=== PATIENT | male | born 1960 | race Caucasian/White ===

== ENCOUNTER 2017-09-27 15:17 | Inpatient (IN) | payer OTHER ==
[2017-09-27] MEDS: morphine 4 MG/ML VIAL IV (16:13)
[2017-09-27] MEDS: SOD CHLORIDE 0.9% 1,000 ML IV ×4 (16:13→22:01)
[2017-09-27] MEDS: ONDANSETRON 4 MG INJ IV (16:13)
[2017-09-27 16:19] LABS: ADD MAN DIFF? NO
[2017-09-27 16:24] LABS: ABNORMAL IP MESSAGE 1; BASOPHILS % 0.1 % (0.0-2.0); HEMATOCRIT 37.6 % (42.0-52.0); HEMOGLOBIN 12.8 g/dl (14.0-18.0); LYMPHOCYTES # 0.1 10^3/ul (0.8-2.9); MEAN CORPUSCULAR HEMOGLOBIN 29.7 pg (29.0-33.0); MEAN CORPUSCULAR VOLUME 87.2 fl (82.0-101.0); MEAN PLATELET VOLUME 9.2 fl (7.4-10.4); MONOCYTE # 0.8 10^3/ul (0.3-0.9); MONOCYTES % 5.9 % (0.0-11.0); NEUTROPHIL # 12.6 10^3/ul (1.6-7.5); NEUTROPHILS % 89.8 % (39.0-77.0); PLATELET COUNT 165 10^3/UL (140-415); POSITIVE DIFF @See below; RED BLOOD COUNT 4.31 10^6/ul (4.70-6.10); RED CELL DISTRIBUTION WIDTH 13.3 % (11.5-14.5)
[2017-09-27 16:42] LABS: ALANINE AMINOTRANSFERASE 453 IU/L (13-69); ALBUMIN 3.2 g/dl (3.3-4.9); ALBUMIN/GLOBULIN RATIO 0.91; ALKALINE PHOSPHATASE 753 IU/L (42-121); ANION GAP 20 (8-16); ASPARTATE AMINO TRANSFERASE 661 IU/L (15-46); BILIRUBIN,INDIRECT 0.5 mg/dl (0-1.1); BILIRUBIN,TOTAL 2.1 mg/dl (0.2-1.3); BLOOD UREA NITROGEN 70 mg/dl (7-20); CALCIUM 9.7 mg/dl (8.4-10.2); CARBON DIOXIDE 23 mmol/L (21-31); CHLORIDE 97 mmol/L (97-110); CREATININE 3.14 mg/dl (0.61-1.24); GLUCOSE 154 mg/dl (70-220); LIPASE 89 U/L (23-300); POTASSIUM 4.7 mmol/L (3.5-5.1); SODIUM 135 mmol/L (135-144); TOTAL PROTEIN 6.7 g/dl (6.1-8.1)
[2017-09-27 17:24] LABS: INR 1.22; PROTIME 15.6 Sec (11.9-14.9); PT RATIO 1.2
[2017-09-27 17:25] LABS: PARTIAL THROMBOPLASTIN TIME 34.2 Sec (25.0-35.0)
[2017-09-27 17:30] LABS: B-TYPE NATRIURETIC PEPTIDE 6650 PG/ML (0-125)
[2017-09-27 17:30] LABS: TROPONIN-I 0.044 ng/ml (0.00-0.12)
[2017-09-27 17:39] LABS: LACTIC ACID 1.7 mmol/L (0.5-2.0)
[2017-09-27 18:45] LABS: LACTIC ACID 1.5 mmol/L (0.5-2.0)
[2017-09-27 19:10] LABS: ADD UMIC YES; UR AMORPHOUS CRYSTAL FEW /HPF (NONE SEEN); UR ASCORBIC ACID 20 mg/dL (NEGATIVE); UR BILIRUBIN (Dip) NEGATIVE (NEGATIVE); UR BLOOD (Dip) 2+ mg/dL (NEGATIVE); UR CLARITY CLOUDY (CLEAR); UR COLOR AMBER (YELLOW); UR GLUCOSE (Dip) NEGATIVE (NEGATIVE); UR KETONES (Dip) NEGATIVE (NEGATIVE); UR LEUKOCYTE ESTERASE (Dip) TRACE Leu/ul (NEGATIVE); UR NITRITE (Dip) NEGATIVE (NEGATIVE); UR RBC 22 /HPF (0-5); UR SPECIFIC GRAVITY (Dip) 1.015 (1.003-1.030); UR SQUAMOUS EPITHELIAL CELL FEW /HPF (FEW); UR TOTAL PROTEIN (Dip) 1+ mg/dl (NEGATIVE); UR UROBILINOGEN (Dip) 1+ mg/dL (NEGATIVE); UR WBC 7 /HPF (0-5)
[2017-09-27] MEDS: PIPER-TAZO 3.375 GM IV (PMX) 100 ML IVPB (19:41)
[2017-09-27] MEDS: VANCOMYCIN 1 GM (PMX) 250 ML IVPB (20:14)
[2017-09-27] MEDS: NORepinephrine 8MG/250 ML (PMX 250 ML IV (20:40)
[2017-09-27] MEDS ORDERED: ONDANSETRON 4 MG INJ IV (21:30)
[2017-09-27] MEDS ORDERED: morphine 2 MG INJ IV (21:30)
[2017-09-27 21:31] LABS: HAAIG REFLEX REFLEX FILED
[2017-09-27] MEDS: SOD CHLORIDE 0.9% 500 ML IV (21:35)
[2017-09-27 21:58] LABS: LACTIC ACID 2.4 mmol/L (0.5-2.0)
[2017-09-27 22:06] LABS: GAMMA GLUTAMYL TRANSPEPTIDASE 400 IU/L (0-50)
[2017-09-27 22:26] LABS: HEPATITIS B SURFACE ANTIGEN NEGATIVE (NEGATIVE)
[2017-09-27 22:44] LABS: HEPATITIS B CORE ANTIBODY NEGATIVE (NEGATIVE); HEPATITIS C VIRAL ANTIBODY NEGATIVE (NEGATIVE)
[2017-09-28] MEDS: PIPER-TAZO 2.25 GM (PMX) 50 ML IVPB ×5 (00:04→23:52)
[2017-09-28] MEDS ORDERED: VANCOMYCIN IV PER PHARMACY XX (04:30)
[2017-09-28] MEDS: SOD CHLORIDE 0.9% 1,000 ML IV ×3 (04:30→23:52)
[2017-09-28] MEDS: PANTOPRAZOLE 40 MG INJ IV (06:17)
[2017-09-28 07:15] LABS: ADD MAN DIFF? NO
[2017-09-28 07:18] LABS: WHITE BLOOD COUNT 12.5 10^3/ul (4.8-10.8)
[2017-09-28 07:18] LABS: ABNORMAL IP MESSAGE 1; BASOPHILS % 0.3 % (0.0-2.0); EOSINOPHILS % 0.2 % (0.0-7.0); HEMATOCRIT 36.3 % (42.0-52.0); HEMOGLOBIN 12.4 g/dl (14.0-18.0); LYMPHOCYTES # 0.3 10^3/ul (0.8-2.9); LYMPHOCYTES % 2.6 % (15.0-51.0); MEAN CORPUSCULAR HGB CONC 34.2 g/dl (32.0-37.0); MEAN CORPUSCULAR VOLUME 87.9 fl (82.0-101.0); MEAN PLATELET VOLUME 9.2 fl (7.4-10.4); MONOCYTE # 1.3 10^3/ul (0.3-0.9); MONOCYTES % 10.2 % (0.0-11.0); NEUTROPHIL # 10.7 10^3/ul (1.6-7.5); NEUTROPHILS % 85.5 % (39.0-77.0); PLATELET COUNT 136 10^3/UL (140-415); POSITIVE DIFF @See below; RED BLOOD COUNT 4.13 10^6/ul (4.70-6.10); RED CELL DISTRIBUTION WIDTH 13.6 % (11.5-14.5)
[2017-09-28 07:39] LABS: LACTIC ACID 1.8 mmol/L (0.5-2.0)
[2017-09-28 07:40] LABS: ALANINE AMINOTRANSFERASE 384 IU/L (13-69); ALBUMIN 2.5 g/dl (3.3-4.9); ALBUMIN/GLOBULIN RATIO 0.78; ALKALINE PHOSPHATASE 594 IU/L (42-121); ANION GAP 20 (8-16); ASPARTATE AMINO TRANSFERASE 359 IU/L (15-46); BILIRUBIN,INDIRECT 0.4 mg/dl (0-1.1); BILIRUBIN,TOTAL 2.3 mg/dl (0.2-1.3); BLOOD UREA NITROGEN 68 mg/dl (7-20); CARBON DIOXIDE 21 mmol/L (21-31); CHLORIDE 102 mmol/L (97-110); CREATININE 2.88 mg/dl (0.61-1.24); GLUCOSE 127 mg/dl (70-220); MAGNESIUM 2.4 mg/dl (1.7-2.5); PHOSPHORUS 3.3 mg/dl (2.5-4.9); POTASSIUM 4.8 mmol/L (3.5-5.1); SODIUM 138 mmol/L (135-144); TOTAL PROTEIN 5.7 g/dl (6.1-8.1)
[2017-09-28 07:53] LABS: HEMOGLOBIN A1C 5.5 % (0-5.9)
[2017-09-28 08:27] LABS: THYROID STIMULATING HORMONE 0.574 MIU/L (0.465-4.680)
[2017-09-28] MEDS: VANCOMYCIN 1.25 GM in SOD CHLORIDE 0.9% 250 ML IVPB (10:51)
[2017-09-28 11:56] LABS: HAAIG REFLEX REFLEX FILED
[2017-09-28 12:24] LABS: LACTIC ACID 1.2 mmol/L (0.5-2.0)
[2017-09-28 12:39] LABS: TOTAL IRON BINDING CAPACITY 161 ug/dl (241-421)
[2017-09-28 12:40] LABS: % IRON SATURATION 10 % SAT (22-52); IRON 16 ug/dl (35-150)
[2017-09-28 12:53] LABS: HEPATITIS B SURFACE ANTIGEN NEGATIVE (NEGATIVE)
[2017-09-28 13:11] LABS: HEPATITIS B CORE ANTIBODY NEGATIVE (NEGATIVE); HEPATITIS C VIRAL ANTIBODY NEGATIVE (NEGATIVE)
[2017-09-28 14:01] LABS: B-TYPE NATRIURETIC PEPTIDE 11000 PG/ML (0-125)
[2017-09-28 18:18] LABS: TROPONIN-I 0.029 ng/ml (0.00-0.12)
[2017-09-29 01:06] LABS: TROPONIN-I 0.033 ng/ml (0.00-0.12)
[2017-09-29 06:03] LABS: ADD MAN DIFF? NO
[2017-09-29 06:10] LABS: WHITE BLOOD COUNT 12.6 10^3/ul (4.8-10.8)
[2017-09-29 06:10] LABS: ABNORMAL IP MESSAGE 1; BASOPHILS % 0.2 % (0.0-2.0); EOSINOPHILS # 0.1 10^3/ul (0.0-0.5); HEMOGLOBIN 12.2 g/dl (14.0-18.0); LYMPHOCYTES # 0.4 10^3/ul (0.8-2.9); LYMPHOCYTES % 3.3 % (15.0-51.0); MEAN CORPUSCULAR HEMOGLOBIN 29.8 pg (29.0-33.0); MEAN CORPUSCULAR HGB CONC 33.9 g/dl (32.0-37.0); MEAN CORPUSCULAR VOLUME 87.8 fl (82.0-101.0); MEAN PLATELET VOLUME 9.7 fl (7.4-10.4); MONOCYTE # 0.9 10^3/ul (0.3-0.9); MONOCYTES % 7.1 % (0.0-11.0); NEUTROPHIL # 10.9 10^3/ul (1.6-7.5); NEUTROPHILS % 87.2 % (39.0-77.0); PLATELET COUNT 173 10^3/UL (140-415); POSITIVE DIFF @See below; RED CELL DISTRIBUTION WIDTH 13.7 % (11.5-14.5)
[2017-09-29] MEDS: PIPER-TAZO 2.25 GM (PMX) 50 ML IVPB ×3 (06:26→17:37)
[2017-09-29 06:31] LABS: ALANINE AMINOTRANSFERASE 241 IU/L (13-69); ALBUMIN 2.3 g/dl (3.3-4.9); ALBUMIN/GLOBULIN RATIO 0.74; ALKALINE PHOSPHATASE 548 IU/L (42-121); ANION GAP 18 (8-16); ASPARTATE AMINO TRANSFERASE 148 IU/L (15-46); BILIRUBIN,INDIRECT 0.4 mg/dl (0-1.1); BILIRUBIN,TOTAL 2.2 mg/dl (0.2-1.3); BLOOD UREA NITROGEN 70 mg/dl (7-20); CALCIUM 8.7 mg/dl (8.4-10.2); CARBON DIOXIDE 21 mmol/L (21-31); CHLORIDE 105 mmol/L (97-110); CREATININE 2.88 mg/dl (0.61-1.24); GLUCOSE 106 mg/dl (70-220); MAGNESIUM 2.5 mg/dl (1.7-2.5); PHOSPHORUS 2.3 mg/dl (2.5-4.9); POTASSIUM 4.3 mmol/L (3.5-5.1); SODIUM 140 mmol/L (135-144); TOTAL PROTEIN 5.4 g/dl (6.1-8.1)
[2017-09-29 06:39] LABS: TROPONIN-I 0.033 ng/ml (0.00-0.12)
[2017-09-29 06:48] LABS: CHOLESTEROL 78 mg/dl (100-200)
[2017-09-29 06:48] LABS: CHOL/HDL RATIO 6.5 RATIO; HDL CHOLESTEROL 12 mg/dl (30-78); LDL CHOLESTEROL,CALCULATED 39 mg/dl; TRIGLYCERIDES 137 mg/dl (0-149)
[2017-09-29 11:28] LABS: ADD UMIC YES; UR AMORPHOUS CRYSTAL FEW /HPF (NONE SEEN); UR ASCORBIC ACID NEGATIVE (NEGATIVE); UR BACTERIA FEW /HPF (NONE SEEN); UR BILIRUBIN (Dip) NEGATIVE (NEGATIVE); UR BLOOD (Dip) 2+ mg/dL (NEGATIVE); UR CLARITY SLIGHTLY CLOUDY (CLEAR); UR COLOR YELLOW (YELLOW); UR GLUCOSE (Dip) NEGATIVE (NEGATIVE); UR KETONES (Dip) NEGATIVE (NEGATIVE); UR LEUKOCYTE ESTERASE (Dip) NEGATIVE Leu/ul (NEGATIVE); UR NITRITE (Dip) NEGATIVE (NEGATIVE); UR RBC 11 /HPF (0-5); UR SPECIFIC GRAVITY (Dip) 1.013 (1.003-1.030); UR SQUAMOUS EPITHELIAL CELL FEW /HPF (FEW); UR TOTAL PROTEIN (Dip) 1+ mg/dl (NEGATIVE); UR UROBILINOGEN (Dip) NEGATIVE (NEGATIVE); UR WBC 4 /HPF (0-5)
[2017-09-29 12:01] LABS: CREATININE,URINE RANDOM 58.14 mg/dl (20-370); PROTEIN/CREAT RATIO 0.87 RATIO
[2017-09-29] MEDS: SOD CHLORIDE 0.9% 250 ML IV (14:00)
[2017-09-29] MEDS: SOD CHLORIDE 0.9% 500 ML IV (17:20)
[2017-09-29] MEDS: SOD CHLORIDE 0.9% 1,000 ML IV (17:34)
[2017-09-29] MEDS ORDERED: VANCOMYCIN IV PER PHARMACY XX (19:00)
[2017-09-29] MEDS: VANCOMYCIN 1.25 GM in SOD CHLORIDE 0.9% 250 ML IVPB (21:15)
[2017-09-30] MEDS: PIPER-TAZO 2.25 GM (PMX) 50 ML IVPB ×5 (01:28→23:26)
[2017-09-30] MEDS: SOD CHLORIDE 0.9% 1,000 ML IV ×4 (07:06→23:26)
[2017-09-30 07:42] LABS: ADD MAN DIFF? NO
[2017-09-30 07:46] LABS: BASOPHIL # 0.1 10^3/ul (0.0-0.1); BASOPHILS % 0.2 % (0.0-2.0); EOSINOPHILS # 0.1 10^3/ul (0.0-0.5); EOSINOPHILS % 0.5 % (0.0-7.0); HEMATOCRIT 30.2 % (42.0-52.0); HEMOGLOBIN 10.3 g/dl (14.0-18.0); LYMPHOCYTES # 0.7 10^3/ul (0.8-2.9); LYMPHOCYTES % 3.6 % (15.0-51.0); MEAN CORPUSCULAR HEMOGLOBIN 29.5 pg (29.0-33.0); MEAN CORPUSCULAR HGB CONC 34.1 g/dl (32.0-37.0); MEAN CORPUSCULAR VOLUME 86.5 fl (82.0-101.0); MEAN PLATELET VOLUME 9.7 fl (7.4-10.4); MONOCYTE # 1.3 10^3/ul (0.3-0.9); MONOCYTES % 6.4 % (0.0-11.0); NEUTROPHIL # 18.3 10^3/ul (1.6-7.5); NEUTROPHILS % 87.7 % (39.0-77.0); PLATELET COUNT 159 10^3/UL (140-415); RED BLOOD COUNT 3.49 10^6/ul (4.70-6.10); RED CELL DISTRIBUTION WIDTH 14.3 % (11.5-14.5)
[2017-09-30 07:46] LABS: WHITE BLOOD COUNT 20.8 10^3/ul (4.8-10.8)
[2017-09-30 08:06] LABS: ALANINE AMINOTRANSFERASE 150 IU/L (13-69); ALBUMIN 2.3 g/dl (3.3-4.9); ALBUMIN/GLOBULIN RATIO 0.74; ALKALINE PHOSPHATASE 491 IU/L (42-121); ANION GAP 17 (8-16); ASPARTATE AMINO TRANSFERASE 95 IU/L (15-46); BILIRUBIN,INDIRECT 0.4 mg/dl (0-1.1); BILIRUBIN,TOTAL 2.3 mg/dl (0.2-1.3); BLOOD UREA NITROGEN 73 mg/dl (7-20); CALCIUM 8.4 mg/dl (8.4-10.2); CARBON DIOXIDE 18 mmol/L (21-31); CHLORIDE 110 mmol/L (97-110); CREATININE 3.16 mg/dl (0.61-1.24); GLUCOSE 106 mg/dl (70-220); MAGNESIUM 2.5 mg/dl (1.7-2.5); PHOSPHORUS 2.5 mg/dl (2.5-4.9); POTASSIUM 3.6 mmol/L (3.5-5.1); SODIUM 141 mmol/L (135-144); TOTAL PROTEIN 5.4 g/dl (6.1-8.1)
[2017-09-30 15:07] LABS: CREATININE, RANDOM URINE 71 mg/dL (20-370); MICROALBUMIN 1.8 mg/dL; MICROALBUMIN/CREATININE RATIO 25 (<30)
[2017-09-30] MEDS: MUPIROCIN 2% 22 GM OINT TOP ×2 (18:06→23:26)
[2017-09-30] MEDS ORDERED: MUPIROCIN 2% 22 GM OINT TOP (21:00)
[2017-10-01] MEDS: DIPHENHYDRAMINE 25 MG CAP PO (00:24)
[2017-10-01] MEDS: METHYLPREDNISOLONE 125 MG INJ IV (00:24)
[2017-10-01] MEDS: PIPER-TAZO 2.25 GM (PMX) 50 ML IVPB ×4 (05:58→23:53)
[2017-10-01] MEDS: CLOPIDOGREL 75 MG TAB PO (08:06)
[2017-10-01] MEDS: MUPIROCIN 2% 22 GM OINT TOP ×2 (08:06→21:06)
[2017-10-01] MEDS: PANTOPRAZOLE (EC) 40 MG TAB PO (08:06)
[2017-10-01] MEDS: SOD CHLORIDE 0.9% 1,000 ML IV ×3 (08:09→19:38)
[2017-10-01 08:52] LABS: ADD MAN DIFF? NO
[2017-10-01 09:01] LABS: WHITE BLOOD COUNT 15.3 10^3/ul (4.8-10.8)
[2017-10-01 09:01] LABS: ABNORMAL IP MESSAGE 1; BASOPHILS % 0.2 % (0.0-2.0); EOSINOPHILS % 0.1 % (0.0-7.0); HEMOGLOBIN 10.9 g/dl (14.0-18.0); LYMPHOCYTES # 0.6 10^3/ul (0.8-2.9); LYMPHOCYTES % 3.8 % (15.0-51.0); MEAN CORPUSCULAR HEMOGLOBIN 29.2 pg (29.0-33.0); MEAN CORPUSCULAR HGB CONC 34.1 g/dl (32.0-37.0); MEAN CORPUSCULAR VOLUME 85.8 fl (82.0-101.0); MEAN PLATELET VOLUME 9.6 fl (7.4-10.4); MONOCYTE # 0.3 10^3/ul (0.3-0.9); MONOCYTES % 1.6 % (0.0-11.0); NEUTROPHILS % 91.4 % (39.0-77.0); PLATELET COUNT 162 10^3/UL (140-415); POSITIVE DIFF @See below; RED BLOOD COUNT 3.73 10^6/ul (4.70-6.10); RED CELL DISTRIBUTION WIDTH 14.5 % (11.5-14.5)
[2017-10-01 09:59] LABS: ALANINE AMINOTRANSFERASE 112 IU/L (13-69); ALBUMIN 2.2 g/dl (3.3-4.9); ALBUMIN/GLOBULIN RATIO 0.66; ALKALINE PHOSPHATASE 485 IU/L (42-121); ANION GAP 17 (8-16); ASPARTATE AMINO TRANSFERASE 76 IU/L (15-46); BILIRUBIN,INDIRECT 0.3 mg/dl (0-1.1); BILIRUBIN,TOTAL 1.1 mg/dl (0.2-1.3); BLOOD UREA NITROGEN 70 mg/dl (7-20); CALCIUM 8.1 mg/dl (8.4-10.2); CARBON DIOXIDE 17 mmol/L (21-31); CHLORIDE 113 mmol/L (97-110); CREATININE 2.84 mg/dl (0.61-1.24); GLUCOSE 157 mg/dl (70-220); MAGNESIUM 2.6 mg/dl (1.7-2.5); POTASSIUM 4.1 mmol/L (3.5-5.1); SODIUM 143 mmol/L (135-144); TOTAL PROTEIN 5.5 g/dl (6.1-8.1)
[2017-10-01] MEDS: SOD FERRIC GLUC COMPLX 125 MG in SOD CHLORIDE 0.9% 100 ML IVPB (17:55)
[2017-10-02] MEDS: PIPER-TAZO 2.25 GM (PMX) 50 ML IVPB ×2 (05:46→11:50)
[2017-10-02 07:27] LABS: ADD MAN DIFF? NO
[2017-10-02 07:35] LABS: ABNORMAL IP MESSAGE 1; BASOPHIL # 0.1 10^3/ul (0.0-0.1); BASOPHILS % 0.3 % (0.0-2.0); HEMATOCRIT 31.1 % (42.0-52.0); HEMOGLOBIN 10.6 g/dl (14.0-18.0); LYMPHOCYTES % 4.8 % (15.0-51.0); MEAN CORPUSCULAR HGB CONC 34.1 g/dl (32.0-37.0); MEAN CORPUSCULAR VOLUME 85.2 fl (82.0-101.0); MONOCYTES % 4.8 % (0.0-11.0); NEUTROPHIL # 16.6 10^3/ul (1.6-7.5); NEUTROPHILS % 81.1 % (39.0-77.0); PLATELET COUNT 175 10^3/UL (140-415); POSITIVE DIFF @See below; RED BLOOD COUNT 3.65 10^6/ul (4.70-6.10); RED CELL DISTRIBUTION WIDTH 14.4 % (11.5-14.5)
[2017-10-02 07:35] LABS: WHITE BLOOD COUNT 20.5 10^3/ul (4.8-10.8)
[2017-10-02] MEDS: PANTOPRAZOLE (EC) 40 MG TAB PO (07:39)
[2017-10-02 08:04] LABS: ALANINE AMINOTRANSFERASE 88 IU/L (13-69); ALBUMIN 2.3 g/dl (3.3-4.9); ALBUMIN/GLOBULIN RATIO 0.74; ALKALINE PHOSPHATASE 401 IU/L (42-121); ANION GAP 18 (8-16); ASPARTATE AMINO TRANSFERASE 42 IU/L (15-46); BILIRUBIN,INDIRECT 0.3 mg/dl (0-1.1); BILIRUBIN,TOTAL 0.3 mg/dl (0.2-1.3); BLOOD UREA NITROGEN 69 mg/dl (7-20); CALCIUM 8.1 mg/dl (8.4-10.2); CARBON DIOXIDE 16 mmol/L (21-31); CHLORIDE 115 mmol/L (97-110); CREATININE 2.72 mg/dl (0.61-1.24); GLUCOSE 161 mg/dl (70-220); MAGNESIUM 2.5 mg/dl (1.7-2.5); PHOSPHORUS 2.4 mg/dl (2.5-4.9); POTASSIUM 3.6 mmol/L (3.5-5.1); SODIUM 145 mmol/L (135-144); TOTAL PROTEIN 5.4 g/dl (6.1-8.1)
[2017-10-02] MEDS: CLOPIDOGREL 75 MG TAB PO (08:23)
[2017-10-02] MEDS: MUPIROCIN 2% 22 GM OINT TOP ×2 (08:24→21:12)
[2017-10-02] MEDS: SOD CHLORIDE 0.9% 1,000 ML IV (08:24)
[2017-10-02] MEDS: SOD CHLORIDE 0.45% 1,000 ML IV (10:34)
[2017-10-02] MEDS ORDERED: VANCOMYCIN IV PER PHARMACY XX (11:00)
[2017-10-02] MEDS ORDERED: VANCOMYCIN 1.5 GM in SOD CHLORIDE 0.9% 250 ML IVPB (12:30)
[2017-10-02] MEDS: LORATADINE 10 MG TAB PO (12:50)
[2017-10-02] MEDS: MEROPENEM 500MG/50 ML (PMX) 50 ML IVPB ×2 (12:50→21:12)
[2017-10-02] MEDS: SOD FERRIC GLUC COMPLX 125 MG in SOD CHLORIDE 0.9% 100 ML IVPB (17:40)
[2017-10-02] MEDS: LINEZOLID 600 MG/D5W (PMX) 300 ML IVPB (21:51)
[2017-10-03] MEDS: SOD CHLORIDE 0.45% 1,000 ML IV (06:00)
[2017-10-03] MEDS: PANTOPRAZOLE (EC) 40 MG TAB PO (06:55)
[2017-10-03 07:55] LABS: ADD MAN DIFF? NO
[2017-10-03 07:57] LABS: ABNORMAL IP MESSAGE 1; BASOPHIL # 0.1 10^3/ul (0.0-0.1); BASOPHILS % 0.7 % (0.0-2.0); EOSINOPHILS # 0.1 10^3/ul (0.0-0.5); EOSINOPHILS % 0.7 % (0.0-7.0); HEMATOCRIT 35.4 % (42.0-52.0); HEMOGLOBIN 12.3 g/dl (14.0-18.0); LYMPHOCYTES # 1.2 10^3/ul (0.8-2.9); LYMPHOCYTES % 8.9 % (15.0-51.0); MEAN CORPUSCULAR HEMOGLOBIN 29.5 pg (29.0-33.0); MEAN CORPUSCULAR HGB CONC 34.7 g/dl (32.0-37.0); MEAN CORPUSCULAR VOLUME 84.9 fl (82.0-101.0); MEAN PLATELET VOLUME 9.4 fl (7.4-10.4); MONOCYTES % 7.1 % (0.0-11.0); NEUTROPHIL # 9.5 10^3/ul (1.6-7.5); NEUTROPHILS % 70.1 % (39.0-77.0); PLATELET COUNT 190 10^3/UL (140-415); POSITIVE DIFF @See below; RED BLOOD COUNT 4.17 10^6/ul (4.70-6.10); RED CELL DISTRIBUTION WIDTH 14.6 % (11.5-14.5)
[2017-10-03 07:57] LABS: WHITE BLOOD COUNT 13.6 10^3/ul (4.8-10.8)
[2017-10-03 08:23] LABS: ALANINE AMINOTRANSFERASE 80 IU/L (13-69); ALBUMIN 2.5 g/dl (3.3-4.9); ALKALINE PHOSPHATASE 400 IU/L (42-121); ANION GAP 17 (8-16); ASPARTATE AMINO TRANSFERASE 50 IU/L (15-46); BILIRUBIN,INDIRECT 0.4 mg/dl (0-1.1); BILIRUBIN,TOTAL 0.4 mg/dl (0.2-1.3); BLOOD UREA NITROGEN 61 mg/dl (7-20); CALCIUM 8.3 mg/dl (8.4-10.2); CARBON DIOXIDE 19 mmol/L (21-31); CHLORIDE 112 mmol/L (97-110); CREATININE 2.36 mg/dl (0.61-1.24); GLUCOSE 111 mg/dl (70-220); MAGNESIUM 2.2 mg/dl (1.7-2.5); PHOSPHORUS 2.7 mg/dl (2.5-4.9); POTASSIUM 3.4 mmol/L (3.5-5.1); SODIUM 145 mmol/L (135-144); TOTAL PROTEIN 5.6 g/dl (6.1-8.1)
[2017-10-03] MEDS: MEROPENEM 500MG/50 ML (PMX) 50 ML IVPB ×2 (09:05→23:05)
[2017-10-03] MEDS: CLOPIDOGREL 75 MG TAB PO (09:06)
[2017-10-03] MEDS: LORATADINE 10 MG TAB PO (09:06)
[2017-10-03] MEDS: LINEZOLID 600 MG/D5W (PMX) 300 ML IVPB (09:06)
[2017-10-03] MEDS: MUPIROCIN 2% 22 GM OINT TOP ×2 (09:06→23:05)
[2017-10-03] MEDS: POTASSIUM CHLORIDE (SR) 20 MEQ TAB PO (09:41)
[2017-10-03] MEDS ORDERED: VANCOMYCIN 1.25 GM in SOD CHLORIDE 0.9% 250 ML IVPB (12:00)
[2017-10-03] MEDS: SOD FERRIC GLUC COMPLX 125 MG in SOD CHLORIDE 0.9% 100 ML IVPB (17:40)
[2017-10-04] MEDS: LINEZOLID 600 MG/D5W (PMX) 300 ML IVPB ×3 (00:22→21:04)
[2017-10-04] MEDS: SOD CHLORIDE 0.45% 1,000 ML IV ×2 (02:20→14:14)
[2017-10-04] MEDS: PANTOPRAZOLE (EC) 40 MG TAB PO (06:26)
[2017-10-04 07:06] LABS: WHITE BLOOD COUNT 16.9 10^3/ul (4.8-10.8)
[2017-10-04 07:06] LABS: ABNORMAL IP MESSAGE 1; HEMATOCRIT 34.9 % (42.0-52.0); HEMOGLOBIN 12.1 g/dl (14.0-18.0); MEAN CORPUSCULAR HEMOGLOBIN 29.7 pg (29.0-33.0); MEAN CORPUSCULAR HGB CONC 34.7 g/dl (32.0-37.0); MEAN CORPUSCULAR VOLUME 85.7 fl (82.0-101.0); MEAN PLATELET VOLUME 9.4 fl (7.4-10.4); PLATELET COUNT 200 10^3/UL (140-415); POSITIVE DIFF @See below; RED BLOOD COUNT 4.07 10^6/ul (4.70-6.10); RED CELL DISTRIBUTION WIDTH 14.4 % (11.5-14.5)
[2017-10-04 07:14] LABS: ADD MAN DIFF? YES
[2017-10-04 07:37] LABS: ALANINE AMINOTRANSFERASE 66 IU/L (13-69); ALBUMIN 2.2 g/dl (3.3-4.9); ALBUMIN/GLOBULIN RATIO 0.68; ALKALINE PHOSPHATASE 363 IU/L (42-121); ANION GAP 17 (8-16); ASPARTATE AMINO TRANSFERASE 33 IU/L (15-46); BILIRUBIN,INDIRECT 0.7 mg/dl (0-1.1); BILIRUBIN,TOTAL 0.7 mg/dl (0.2-1.3); BLOOD UREA NITROGEN 52 mg/dl (7-20); CALCIUM 8.3 mg/dl (8.4-10.2); CARBON DIOXIDE 18 mmol/L (21-31); CHLORIDE 112 mmol/L (97-110); CREATININE 2.09 mg/dl (0.61-1.24); GLUCOSE 98 mg/dl (70-220); POTASSIUM 3.4 mmol/L (3.5-5.1); SODIUM 144 mmol/L (135-144); TOTAL PROTEIN 5.4 g/dl (6.1-8.1)
[2017-10-04] MEDS: CLOPIDOGREL 75 MG TAB PO (08:22)
[2017-10-04] MEDS: LORATADINE 10 MG TAB PO (08:22)
[2017-10-04] MEDS: MUPIROCIN 2% 22 GM OINT TOP ×2 (08:22→21:05)
[2017-10-04 08:54] LABS: BAND NEUTROPHILS #M 0.3 10^3/ul (0.0-0.6); BAND NEUTROPHILS % (M) 2 % (0-4); BASOPHIL #M 0.1 10^3/ul (0.0-0.0); BASOPHILS % (M) 1 % (0-2); LYMPHOCYTES % (M) 6 % (15-51); METAMYELOCYTES #M 0.1 10^3/ul (0.0-0.0); METAMYELOCYTES %M 1 % (0-0); MONOCYTE #M 0.6 10^3/ul (0.3-0.9); MONOCYTES % (M) 4 % (0-11); MYELOCYTES #M 0.1 10^3/ul (0.0-0.0); MYELOCYTES % (M) 1 % (0-0); PLATELET ESTIMATE NORMAL; POIKILOCYTOSIS 2+ (0-0); POLYCHROMASIA 1+ (0-0); SEG NEUT #M 14.4 10^3/ul (1.6-7.5); SEGMENTED NEUTROPHILS (M) % 85 % (39-77)
[2017-10-04] MEDS: POTASSIUM CHLORIDE (SR) 20 MEQ TAB PO (10:03)
[2017-10-04] MEDS: MEROPENEM 500MG/50 ML (PMX) 50 ML IVPB ×2 (10:03→21:04)
[2017-10-04] MEDS: APIXABAN 5 MG TABLET PO (21:05)
[2017-10-05] MEDS: PANTOPRAZOLE (EC) 40 MG TAB PO (06:31)
[2017-10-05 06:33] LABS: ADD MAN DIFF? NO
[2017-10-05 06:39] LABS: ABNORMAL IP MESSAGE 1; BASOPHIL # 0.1 10^3/ul (0.0-0.1); BASOPHILS % 0.6 % (0.0-2.0); EOSINOPHILS # 0.1 10^3/ul (0.0-0.5); EOSINOPHILS % 0.5 % (0.0-7.0); HEMATOCRIT 37.3 % (42.0-52.0); HEMOGLOBIN 12.5 g/dl (14.0-18.0); LYMPHOCYTES # 1.5 10^3/ul (0.8-2.9); LYMPHOCYTES % 8.1 % (15.0-51.0); MEAN CORPUSCULAR HEMOGLOBIN 29.3 pg (29.0-33.0); MEAN CORPUSCULAR HGB CONC 33.5 g/dl (32.0-37.0); MEAN CORPUSCULAR VOLUME 87.6 fl (82.0-101.0); MEAN PLATELET VOLUME 9.9 fl (7.4-10.4); MONOCYTE # 0.9 10^3/ul (0.3-0.9); MONOCYTES % 4.8 % (0.0-11.0); NEUTROPHIL # 14.9 10^3/ul (1.6-7.5); NEUTROPHILS % 78.7 % (39.0-77.0); PLATELET COUNT 186 10^3/UL (140-415); POSITIVE DIFF @See below; RED BLOOD COUNT 4.26 10^6/ul (4.70-6.10); RED CELL DISTRIBUTION WIDTH 14.8 % (11.5-14.5)
[2017-10-05 06:39] LABS: WHITE BLOOD COUNT 18.9 10^3/ul (4.8-10.8)
[2017-10-05 07:05] LABS: ANION GAP 15 (8-16); BLOOD UREA NITROGEN 44 mg/dl (7-20); CALCIUM 8.4 mg/dl (8.4-10.2); CARBON DIOXIDE 21 mmol/L (21-31); CHLORIDE 111 mmol/L (97-110); CREATININE 2.04 mg/dl (0.61-1.24); GLUCOSE 111 mg/dl (70-220); MAGNESIUM 1.9 mg/dl (1.7-2.5); PHOSPHORUS 2.9 mg/dl (2.5-4.9); POTASSIUM 4.3 mmol/L (3.5-5.1); SODIUM 143 mmol/L (135-144)
[2017-10-05] MEDS: MEROPENEM 500MG/50 ML (PMX) 50 ML IVPB (08:41)
[2017-10-05] MEDS: CLOPIDOGREL 75 MG TAB PO (08:42)
[2017-10-05] MEDS: LINEZOLID 600 MG/D5W (PMX) 300 ML IVPB (08:42)
[2017-10-05] MEDS: LORATADINE 10 MG TAB PO (08:42)
[2017-10-05] MEDS: MUPIROCIN 2% 22 GM OINT TOP (08:43)
[2017-10-05] MEDS: APIXABAN 5 MG TABLET PO (08:43)
[2017-10-05] MEDS: MAGNESIUM SULFATE 2 GM/50 ML 50 ML IVPB (12:24)
== END 2017-10-05 18:15 | DRG 871 ==
LOC: ICU 21:06 → TEL 09-29 11:26 → E/R 15:17
DX: A41.51 Sepsis due to Escherichia coli [E. coli] (principal); R65.21 Severe sepsis with septic shock; N17.9 Acute kidney failure, unspecified; J18.9 Pneumonia, unspecified organism; K80.00 Calculus of gallbladder with acute cholecystitis without obstruction; E66.01 Morbid (severe) obesity due to excess calories; R16.0 Hepatomegaly, not elsewhere classified; I48.0 Paroxysmal atrial fibrillation; N39.0 Urinary tract infection, site not specified; I25.5 Ischemic cardiomyopathy; I12.9 Hypertensive chronic kidney disease with stage 1 through stage 4 chronic kidney disease, or unspecified chronic kidney disease; N18.9 Chronic kidney disease, unspecified; K21.9 Gastro-esophageal reflux disease without esophagitis; D63.1 Anemia in chronic kidney disease; I25.10 Atherosclerotic heart disease of native coronary artery without angina pectoris; Z86.73 Personal history of transient ischemic attack (TIA), and cerebral infarction without residual deficits; I25.2 Old myocardial infarction; Z68.34 Body mass index [BMI] 34.0-34.9, adult; K59.00 Constipation, unspecified; E78.5 Hyperlipidemia, unspecified; Z22.322 Carrier or suspected carrier of Methicillin resistant Staphylococcus aureus; B96.20 Unspecified Escherichia coli [E. coli] as the cause of diseases classified elsewhere
CPT/HCPCS: 36415; 71045; 74176; 74181; 76705; 76775; 78226; 80048; 80053; 80061; 81001; 81003; 82043; 82570; 82728; 82977; 83036; 83540; 83605; 83690; 83735; 83880; 83970; 84100; 84443; 84484; 85025; 85610; 85730; 86704; 86709; 86803; 87040; 87081; 87086; 87340; 87400; 93005; 93306; 96374; 96375; 96376; 99285-25